=== PATIENT | female | born 1955 | race Caucasian/White ===

== ENCOUNTER 2017-12-11 14:32 | Outpatient (CLI) | payer BC ==
--- NOTE | 2017-12-11 16:07 | MRI ---
LUMBAR SPINE MRI WITHOUT IV CONTRAST: 12/11/17 HISTORY: 61-year-old female with history of lumbar radiculopathy, low back pain radiating to right hip for fou r years. Multiplanar and multisequence MRI examination of the lumbar is performed. The conus medullaris region is unremarkable terminating at L1. There is generalized disc desiccation change and ligament and fac et hypertrophic changes. L1-2 and L2-3 disc demonstrates no evidence for herniation or significant canal or foraminal stenosis . At L3-4, there is some diffuse disc bulging with very mild thinning of the lateral recesses without s ignificant foraminal stenosis. At L4-5, there is moderate central canal and lateral recess stenosis without significant foraminal st enosis. The stenosis appears slightly more marked than on the prior study of 06/19/08. At L5-S1, no central canal or foraminal stenosis. Small Tarlov cyst at S2. IMPRESSION: Mild to moderate central canal and lateral recess stenosis at L4-L5 and very mild lateral recess narr owing at L3-L4. Facet changes have worsened when compared to the prior study. The amount of canal and lateral recess stenosis at L4-L5 has worsened slightly from the prior study. POS: [facility]
--- NOTE | 2017-12-11 16:18 | MRI ---
MRI OF THE RIGHT HIP WITHOUT IV CONTRAST 12/11/17 INDICATION: Right hip pain. TECHNIQUE: Multiplanar and multisequence MRI images were obtained of the right hip without IV contrast. No radio graphic or MR comparisons are available. FINDINGS: There is high T2 signal seen at the musculotendinous junction of the right rectus femoris muscle prox imally. This extends into the proximal aspect of the rectus femoris and to its reflected head of the origin of the right rectus femoris where there is a large T2 hyperintense cystic type collection seen measuring 4 x 1.1 cm. No iliopsoas bursitis is evident. There is a mild amount of fluid distending i n the subgluteus minimus and medius tendons. There is tendinosis of the right subgluteus minimus and medius tendon. There is abnormal linear T2 hyperintensity involving the anterior superior and superio r acetabular labrum consistent with a labral tear. There is mild degenerative arthrosis involving the right hip joint. Ligamentum teres appears intact. No acute fracture is demonstrated. No definite bon e marrow signal abnormality is evident. IMPRESSION: 1. Findings suspicious for a low grade strain involving the proximal right rectus femoris muscul ature. 2. There is high T2 signal cystic-like collection seen near the region of the reflected head of the right rectus femoris which is nonspecific and may reflect fluid from the patient's rectus femoris strain; however, this can also be seen with large paralabral cysts. The patient does have a labral t ear involving the anterior superior and superior aspect of the acetabular labrum. Would recommend a f ollow up MR examination in 6 to 8 weeks with and without contrast to document stability or resolution . 3. Mild osteoarthrosis of the right hip. 4. Moderate tendinosis right gluteus minimus and medius tendons with mild subgluteus minimus and medius trochanteric bursitis. POS: [facility]
== END 2017-12-11 14:33 | disposition home or self-care (01) ==
LOC: TBSIIMAG 14:32
PROVIDERS: ATTEND Orthopaedic Surgery
DX: M54.16 Radiculopathy, lumbar region (principal); M25.551 Pain in right hip; M48.061 Spinal stenosis, lumbar region without neurogenic claudication; S73.101A Unspecified sprain of right hip, initial encounter; M16.11 Unilateral primary osteoarthritis, right hip; M70.61 Trochanteric bursitis, right hip; M76.01 Gluteal tendinitis, right hip
CPT/HCPCS: 72148

== ENCOUNTER 2020-10-29 09:18 | Outpatient (CLI) | payer BC ==
[2020-10-29 12:09] LABS: #Eosinphils 0.1 10x3/uL (0.0-0.5); #Monocytes 0.4 10x3/uL (0.0-1.1); #Neutrophils 2.8 10x3/uL (1.5-8.4); %Basophils 0.7 % (0.0-2.0); %Eosinophils 1.8 % (0.0-6.0); %Lymphocytes 38.9 % (18.0-47.0); %Monocytes 7.8 % (0.0-10.0); %Neutrophils 50.4 % (40.0-75.0); Hemoglobin 13.6 g/dL (12.0-15.5); Mean Corpuscular HGB CONC 33.8 g/dL (32.0-36.0); Mean Corpuscular Volume 91.6 fl (81.6-98.3); Mean Platelet Volume 11.7 fl (7.4-10.4); Platelet Count 212 10x3/uL (150-450); RBC Distribution Width 13.2 % (11.5-14.5); Red Blood Cell (RBC) Count 4.39 10x6/uL (3.90-5.03); White Blood Cell (WBC) Count 5.5 10x3/uL (3.5-10.5)
[2020-10-29 12:23] LABS: ALT (SGPT) 32 U/L (8-55); AST (SGOT) 25 U/L (5-34); Albumin 4.3 g/dL (3.4-4.8); Alkaline Phosphatase 69 U/L (40-110); Anion Gap 15 mmol/L (10-20); BUN (Urea Nitrogen) 14 mg/dL (9.8-20.1); Bilirubin, Direct 0.2 mg/dL (0.1-0.3); Bilirubin, Total 0.5 mg/dL (0.2-1.2); Calc. Creatinine Clearance 0 mL/min (70-130); Calcium 9.8 mg/dL (7.8-10.44); Carbon Dioxide 26 mmol/L (23-31); Chloride 104 mmol/L (98-107); Globulin 2.4 g/dL (2.4-3.5); Glucose 104 mg/dL (80-115); Potassium 3.7 mmol/L (3.5-5.1); Protein, Total 6.7 g/dL (5.8-8.1); Sodium 141 mmol/L (136-145)
[2020-10-29 15:29] VITALS: BMI 29.2
[2020-10-30 02:13] LABS: SARS-CoV-2 PCR by NAA Not Detected (NotDetected)
== END 2020-10-29 09:19 | disposition home or self-care (01) ==
LOC: LABBT 09:18
PROVIDERS: ATTEND Surgery
DX: Z01.818 Encounter for other preprocedural examination (principal); K80.20 Calculus of gallbladder without cholecystitis without obstruction; Z20.822 Contact with and (suspected) exposure to COVID-19
CPT/HCPCS: 80053; 80076; 85025; 87635; 93005; 93010; U0003; U0005

== ENCOUNTER 2020-10-31 09:24 | Day surgery (SDC) | payer BC ==
[2020-10-31] MEDS ORDERED: cefOXitin Sodium/Dextrose 2 GM/50 ML BAG ONE (10:33)
[2020-10-31] MEDS ORDERED: Lidocaine 1% w/Epinephrine 1:100K 20 ML VIAL ONE (11:30)
[2020-10-31] MEDS ORDERED: Bupivacaine 0.25% HCL 30 ML VIAL ONE (11:30)
[2020-10-31] MEDS ORDERED: Lidocaine 2% Jelly 5 ML TUBE ONE (11:35)
[2020-10-31] MEDS ORDERED: Fentanyl 100 MCG/2 ML VIAL ONE ×3 (11:35→13:34)
[2020-10-31] MEDS ORDERED: Rocuronium Bromide 10 MG/ML (10ML VIAL) ONE (11:47)
[2020-10-31] MEDS ORDERED: PROPOFOL 200 MG/20 ML VIAL ONE (11:47)
[2020-10-31] MEDS ORDERED: Lidocaine 1% PF 5 ML VIAL ONE (11:47)
[2020-10-31] MEDS ORDERED: Ondansetron PF 4 MG/2 ML Vial ONE (11:47)
[2020-10-31] MEDS ORDERED: Ketorolac Tromethamine 30 MG/ML VIAL ONE (11:47)
[2020-10-31] MEDS ORDERED: Dexamethasone 20 MG/5 ML VIAL ONE (11:47)
[2020-10-31] MEDS ORDERED: Glycopyrrolate 0.2 MG/ML 5 ML SYRINGE ONE (11:47)
== END 2020-10-31 15:20 | disposition home or self-care (01) ==
LOC: SDC 09:24
PROVIDERS: ATTEND Surgery
PROC: 0FT44ZZ Resection of Gallbladder, Percutaneous Endoscopic Approach (ICD-10-PCS; principal; 2020-10-31)
DX: K80.10 Calculus of gallbladder with chronic cholecystitis without obstruction (principal); I10 Essential (primary) hypertension; K21.9 Gastro-esophageal reflux disease without esophagitis; Z79.899 Other long term (current) drug therapy; Z88.2 Allergy status to sulfonamides; Z88.5 Allergy status to narcotic agent
CPT/HCPCS: 88304; J0694; J1100; J1885; J2405; J2704; J3010; S0020

== ENCOUNTER 2023-06-05 12:57 | Outpatient (CLI) | payer MEDICARE, BC | END 2023-06-05 12:58 | disposition home or self-care (01) | LOC: SCSMRI 12:57 | PROVIDERS: ATTEND Anesthesiology Pain Medicine | DX: M48.062 Spinal stenosis, lumbar region with neurogenic claudication (principal); M16.9 Osteoarthritis of hip, unspecified; M43.16 Spondylolisthesis, lumbar region; M47.816 Spondylosis without myelopathy or radiculopathy, lumbar region; R93.6 Abnormal findings on diagnostic imaging of limbs | CPT/HCPCS: 72148 ==